=== PATIENT | female | born 2000 | race Asian ===

== ENCOUNTER 2022-07-14 18:21 | Observation (INO) ==
[2022-07-14 18:52] LABS: Basophils # (auto) 0.02 K/uL (0-0.2); Basophils % (auto) 0.2 %; Eosinophils # (auto) 0.13 K/uL (0-0.50); Eosinophils % (auto) 1.1 %; Hematocrit (blood only) 40.3 % (34.1-44.9); Immature Granulocytes # (auto) 0.04 K/uL (0.00-0.02); Immature Granulocytes % (auto) 0.3 %; Lymphocytes # (auto) 2.02 K/uL (1.2-3.4); Lymphocytes % (auto) 17.1 %; Mean Corpuscular Hemoglobin 27.5 pg (25.0-34.0); Mean Corpuscular Hgb Conc 32.3 g/dL (32.0-36.0); Mean Corpuscular Volume 85.2 fL (80.0-100.0); Mean Platelet Volume 10.7 fL (9.4-12.3); Monocytes # (auto) 0.44 K/uL (0.24-0.82); Monocytes % (auto) 3.7 %; Neutrophils # (auto) 9.16 K/uL (1.4-6.5); Neutrophils % (auto) 77.6 %; Platelet Count 261 K/uL (130-400); RDW Coefficient of Variation 12.9 % (11.5-14.5); RDW Standard Deviation 40.1 fL (36.4-46.3); Red Blood Count 4.73 M/uL (3.93-5.22); White Blood Count 11.81 K/ul (4.8-10.8)
[2022-07-14 19:17] LABS: Alanine Aminotransferase 16 U/L (7-52); Albumin Globulin Ratio 1.5 (0.9-2); Albumin Level 3.9 gm/dl (3.4-5.0); Alkaline Phosphatase 51 U/L (34-104); Anion Gap 6 (3-11); Aspartate Aminotransferase 22 U/L (13-39); Bilirubin,Total 0.7 mg/dl (0.2-1.0); Blood Urea Nitrogen 15 mg/dl (6-23); Calcium 8.6 mg/dl (8.5-10.1); Carbon Dioxide 26 mmol/L (21-32); Chloride 105 mmol/L (98-107); Est GFR (African American) 124.9 ml/min; Est GFR (Non-African American) 107.8 ml/min; Globulin 2.6 gm/dl (2.5-4.0); Glucose 150 mg/dl (70-99(Fasting)); Potassium 3.6 mmol/L (3.5-5.1); Sodium 137 mmol/L (136-145); Total Protein 6.5 gm/dl (6.0-8.3)
[2022-07-14] MEDS ORDERED: SODIUM CHLORIDE 0.9% 1000ML 1,000 ML IV ONE (19:42)
--- NOTE | 2022-07-14 19:47 | Emergency Department Note ---
Impression & Plan Vasculitis, Leukocytosis, Acute hyperglycemia ED Provider Note NAME: JANKI AMRY AGE: 21 SEX: F : 2000 ARRIVES VIA: Walk-In INFORMANT: Patient ED PROVIDER(S): Joe Cervantes DO CHIEF COMPLAINT: leg pain and rash HPI: Patient is a 21-year-old female who presents the ER to the for a rash on her lower extremities. Recently came back from [place] around the . Rash started this past Monday on the lower extremities. She notes the calves are painful. She notes that she can barely walk secondary to the cramping and the pain in her legs. Rash does come up into the bilateral arms. She admits to cramping pain in the bilateral thighs and calves. Pain is an 8 out of 10. Worse with movement improves with rest. It is sharp and stabbing. Denies any tingling or numbness. No chest pain or shortness of breath. No other exacerbating or remitting factors. ROS: See above HPI for pertinent positives & negatives. A total of 10 systems reviewed and were otherwise negative. PAST MEDICAL HISTORY:See Below PAST SURGICAL HISTORY:See Below FAMILY HISTORY:See Below SOCIAL HISTORY:See Below HOME MEDICATIONS:See Below ALLERGIES:See Below VITALS:See Below PHYSICAL EXAMINATION: GENERAL: Sitting up in bed, alert, well appearing, well nourished, no distress, non-toxic EYE EXAM: normal conjunctiva. OROPHARYNX: no exudate, no erythema, lips, buccal mucosa, and tongue normal and mucous membranes are moist NECK: supple, no nuchal rigidity, no adenopathy, non-tender LUNGS: Clear to auscultation. Normal chest wall mechanics HEART: no murmurs, S1 normal and S2 normal ABDOMEN: abdomen soft, non-tender, normo-active bowel sounds, no masses, no re bound or guarding. BACK: Back is symmetrical on inspection and there is no deformity, no midline te nderness, no CVA tenderness. SKIN: In the lower extremities and bilateral forearms and gluteal regions. Tender to palpation. UPPER EXTREMITIES: upper extremities are grossly normal. LOWER EXTREMITIES: No pitting edema. NEURO EXAM: Normal sensorium, cranial nerves II-XII grossly intact, normal sp eech, no gross weakness of arms, no gross weakness of legs. MEDICAL DECISION MAKING: Patient is a 21-year-old female who presents ER for rash on lower extremities. She notes it is painful and has been present since this past Monday. Recent trip to [place] and she has returned. She denies any fevers. IVs were established blood work was obtained. Labs show mild leukocytosis 11.8 thousand. No significant anemia. Platelets were appropriate. INR unremarkable. BMP with LFTs bilirubin was unremarkable. UA was clean. COVID was negative. On exam this does appear to be consistent with a vasculitis question IgA but it does include the upper extremities. She was given a dose of steroids. Discussed with Dr. Chay Garcia for further evaluation. Triage Nursing notes reviewed. Limited review of prior medical records performed Vital Signs: reviewed and remarkable for no significant abnormalities Differential diagnosis: Contact dermatitis, viral exanthem, urticaria, allergic reaction, Max- Enoch syndrome, toxic epidermal necrolysis, erythema multiforme, cellulitis, scabies, HSV, varicella, zoster, eczema, staph scalded skin syndrome, fungal infection, as well as other pathologies. ER treatment provided: See below Diagnostics interpreted by me: ECG: [none] Cardiac Monitoring: An order was placed for continuous cardiac monitoring. The monitor shows a rate of 101 with sinus rhythm. Laboratory studies: As stated above and show below. Imaging studies: See below Consultation(s): Discussed with Chay Garcia for further evaluation Procedures: none Critical Care: None Past Med/Surg History Medical History (Updated 07/14/22 @ 22:26 by Joe Cervantes DO) No pertinent family history No pertinent past medical history Surgical History (Updated 07/10/22 @ 21:21 by Bryan Polanco) No pertinent past surgical history Social History Smoking Status: Never smoker Feels Safe at Home: Yes Allergies Allergies Allergy/AdvReac Type Severity Reaction Status Date / Time No Known Allergies Allergy Verified 07/14/22 20:35 Home Meds Home Medications Medication Instructions Recorded Confirmed ibuprofen 200 mg tablet (Advil) 200 mg PO DIRECTED PRN Pain 07/14/22 07/14/22 Results & Data (ED) Vital Signs Vital Signs - 24 hr 07/14/22 18:27 Temperature 37.2 C Temperature Source Oral Pulse Rate 108 H Respiratory Rate 20 Respiratory Effort / Characteristics Non-Labored Spontaneous Respiratory Depth Normal Respiratory Pattern Regular Blood Pressure 128/77 Blood Pressure Mean 94 Pulse Oximetry 98 Oxygen Delivery Method Room Air Sepsis Recent Fever Within 48 Hours No Sepsis New/Unexplained Change in Mental Status No Sepsis Action Taken by Nursing No Action Required Laboratory Data Result diagrams: 07/14/22 18:41 07/14/22 18:41 Lab Results 07/14/22 07/14/22 07/14/22 Range/Units 18:41 18:41 20:00 WBC 11.81 H (4.8-10.8) K/ul RBC 4.73 (3.93-5.22) M/uL Hgb 13.0 (12.0-16.0) g/dl Hct 40.3 (34.1-44.9) % MCV 85.2 (80.0-100.0) fL MCH 27.5 (25.0-34.0) pg MCHC 32.3 (32.0-36.0) g/dL RDW Std Deviation 40.1 (36.4-46.3) fL RDW Coeff of [place] 12.9 (11.5-14.5) % Plt Count 261 (130-400) K/uL MPV 10.7 (9.4-12.3) fL Immature Gran % (Auto) 0.3 % Neut % (Auto) 77.6 % Lymph % (Auto) 17.1 % [place] % (Auto) 3.7 % Eos % (Auto) 1.1 % Baso % (Auto) 0.2 % Neut # (Auto) 9.16 H (1.4-6.5) K/uL Lymph # (Auto) 2.02 (1.2-3.4) K/uL [place]gs # (Auto) 0.44 (0.24-0.82) K/uL Eos # (Auto) 0.13 (0-0.50) K/uL Baso # (Auto) 0.02 (0-0.2) K/uL Immature Gran # (Auto) 0.04 H (0.00-0.02) K/uL PT (9.0-12.0) Seconds INR (0.9-1.1) APTT (21.0-31.0) Seconds PTT Ratio Sodium 137 (136-145) mmol/L Potassium 3.6 (3.5-5.1) mmol/L Chloride 105 (98-107) mmol/L Carbon Dioxide 26 (21-32) mmol/L Anion Gap 6 (3-11) BUN 15 (6-23) mg/dl Creatinine 0.79 (0.6-1.2) mg/dl Est Cr Clr Drug Dosing Not Reportable Est GFR ( Amer) 124.9 ml/min Est GFR (Non-Af Amer) 107.8 ml/min BUN/Creatinine Ratio 19.0 (10-20) Glucose 150 H (70-99(Fasting)) mg/dl Lactate 1.3 (0.4-2.0) mmol/L Calcium 8.6 (8.5-10.1) mg/dl Total Bilirubin 0.7 (0.2-1.0) mg/dl AST 22 (13-39) U/L ALT 16 (7-52) U/L Alkaline Phosphatase 51 (34-104) U/L Total Protein 6.5 (6.0-8.3) gm/dl Albumin 3.9 (3.4-5.0) gm/dl Globulin 2.6 (2.5-4.0) gm/dl Albumin/Globulin Ratio 1.5 (0.9-2) Urine Color Urine Appearance (Clear) Urine pH (4.5-7.5) Ur Specific [place] (1.000-1.030) Urine Protein (Negative) Urine Glucose (UA) (Negative) Urine Ketones (Negative) Urine Blood (Negative) Urine Nitrite (Negative) Urine Bilirubin (Negative) Urine Urobilinogen (Negative) Ur Leukocyte Esterase (Negative) Urine WBC (Auto) (0-5) /hpf Urine RBC (Auto) (0-4) /hpf U Hyaline Cast (Auto) (0-5) /lpf U Epithel Cells (Auto) (0-5) /lpf Urine Bacteria (Auto) (Negative) SARS-CoV-2, RNA, NAAT (NEGATIVE) 07/14/22 07/14/22 07/14/22 Range/Units 20:00 20:00 21:54 WBC (4.8-10.8) K/ul RBC (3.93-5.22) M/uL Hgb (12.0-16.0) g/dl Hct (34.1-44.9) % MCV (80.0-100.0) fL MCH (25.0-34.0) pg MCHC (32.0-36.0) g/dL RDW Std Deviation (36.4-46.3) fL RDW Coeff of [place] (11.5-14.5) % Plt Count (130-400) K/uL MPV (9.4-12.3) fL Immature Gran % (Auto) % Neut % (Auto) % Lymph % (Auto) % [place] % (Auto) % Eos % (Auto) % Baso % (Auto) % Neut # (Auto) (1.4-6.5) K/uL Lymph # (Auto) (1.2-3.4) K/uL [place] # (Auto) (0.24-0.82) K/uL Eos # (Auto) (0-0.50) K/uL Baso # (Auto) (0-0.2) K/uL Immature Gran # (Auto) (0.00-0.02) K/uL PT 10.3 (9.0-12.0) Seconds INR 1.0 (0.9-1.1) APTT 24.8 (21.0-31.0) Seconds PTT Ratio 0.9 Sodium (136-145) mmol/L Potassium (3.5-5.1) mmol/L Chloride (98-107) mmol/L Carbon Dioxide (21-32) mmol/L Anion Gap (3-11) BUN (6-23) mg/dl Creatinine (0.6-1.2) mg/dl Est Cr Clr Drug Dosing Est GFR ( Amer) ml/min Est GFR (Non-Af Amer) ml/min BUN/Creatinine Ratio (10-20) Glucose (70-99(Fasting)) mg/dl Lactate (0.4-2.0) mmol/L Calcium (8.5-10.1) mg/dl Total Bilirubin (0.2-1.0) mg/dl AST (13-39) U/L ALT (7-52) U/L Alkaline Phosphatase (34-104) U/L Total Protein (6.0-8.3) gm/dl Albumin (3.4-5.0) gm/dl Globulin (2.5-4.0) gm/dl Albumin/Globulin Ratio (0.9-2) Urine Color Yellow Urine Appearance Clear (Clear) Urine pH 6.0 (4.5-7.5) Ur Specific [place] 1.020 (1.000-1.030) Urine Protein Negative (Negative) Urine Glucose (UA) Negative (Negative) Urine Ketones Negative (Negative) Urine Blood Negative (Negative) Urine Nitrite Negative (Negative) Urine Bilirubin Negative (Negative) Urine Urobilinogen Negative (Negative) Ur Leukocyte Esterase Trace H (Negative) Urine WBC (Auto) 1-5 (0-5) /hpf Urine RBC (Auto) 0-4 (0-4) /hpf U Hyaline Cast (Auto) 1-5 (0-5) /lpf U Epithel Cells (Auto) 10-20 H (0-5) /lpf Urine Bacteria (Auto) Negative (Negative) SARS-CoV-2, RNA, NAAT NEGATIVE (NEGATIVE) Administered Medications Discontinued Medications Sodium Chloride (Nss 1000ml) 1,000 mls @ 999 mls/hr IV .Q1H1M ONE Stop: 07/14/22 20:42 Last Admin: 07/14/22 19:56 Dose: 999 mls/hr Documented By: RONALDO Methylprednisolone (Methylprednisolone 40 Mg/Ml Vial) 40 mg IV NOW STA Stop: 07/14/22 19:45 Last Admin: 07/14/22 19:56 Dose: 40 mg Documented By: RONALDO Discharge Plan Visit Data Chief Complaint: Leg Injury/Pain Stated Complaint: PAIN IN LEGS ED Provider: Joe Cervantes Discharge Problem: Vasculitis, Leukocytosis, Acute hyperglycemia Forms Stand Alone Forms: [facility] [place] [employer] Prescriptions Prescriptions: No Action ibuprofen [Advil] 200 mg Tablet 200 mg PO DIRECTED PRN (Reason: Pain) Referrals Referrals: [facility] [Primary Care Provider] -
[2022-07-14 20:54] LABS: Partial Thromboplastin Ratio 0.9; Partial Thromboplastin Time 24.8 Seconds (21.0-31.0); Prothrombin Time 10.3 Seconds (9.0-12.0)
[2022-07-14 21:25] LABS: Appearance Urine Clear (Clear); Bacteria Urine Automated Negative (Negative); Bilirubin Urine Negative (Negative); Blood Urine Negative (Negative); Color Urine Yellow; Glucose Urine UA Negative (Negative); Ketones Urine Negative (Negative); Leukocyte Esterase Urine Trace (Negative); Nitrite Urine Negative (Negative); Protein Urine Negative (Negative); RBC Urine Automated 0-4 /hpf (0-4); Urobilinogen Urine Negative (Negative)
--- NOTE | 2022-07-14 21:46 | History & Physical Report ---
Date of Service July 14, 2022 Assessment & Plan (1) Petechial rash: Plan: 21-year-old woman with no significant past medical history who presents with 2 to 3 days of diffuse lower extremity petechial rash sparing the trunk and face, now extending to upper extremities. Admitted for worsening bilateral calf pain and swelling, and additional diagnostic work-up. Petechial rash -Etiology is unclear. Patient had a similarly unexplained diffuse total body rash (did not spare the trunk or face) over 10 days prior, which apparently resolved on an unnamed antibiotic. She was initially diagnosed with allergic urticaria. -Patient afebrile on both occasions. -Differential diagnosis includes allergic vasculitis, HUS, DIC, tickborne illness, SJS/TEN, ITP, HSP. Also considering parasitic etiology, given patient's travel history. Strongly suspect ITP versus vasculitis. -Admit to [facility] -Supportive management: mIVF, Tylenol, Zofran as needed -Diagnostic labs: CK, tickborne panel (Ehrlichia, Anaplasma, Babesia, Lyme, Rickettsia, Q fever), D-dimer -Bilateral LE venous ultrasound -Peripheral smear of platelets -ID, Derm consult -Isolation precautions -Trend platelets on morning CBC Gallstones: Seen on gallbladder ultrasound. No evidence of acute cholecystitis or gallbladder wall thickening. Patient's presenting symptoms have since resolved. Unclear if related to current presentation. Leukocytosis: WBC-11.1 unclear if true leukocytosis or if slowly downtrending from WBC 15 recorded 5 days earlier. Trend on morning CBC. Code: Full code Dispo: Med-Surg FEN/GI: regular diet, maintenance IV NS DVT Prophylaxis: none PT/OT: N/A Consults: Infectious disease, Dermatology Case management: (2) Leukocytosis: (3) Gallstones: History of Present Illness Primary Care Provider: [facility] Genoveva is a 21 year old woman with no significant past medical history who presents to the ER for painless, nonpruritic rash on her bilateral legs and thighs x2 to 3 days. Rash began abruptly in her lower legs and gradually spread to her thighs and upper arms. Rash has spared the trunk and face. She also reported bilateral lower extremity swelling and calf pain. Calf pain progressively worsened to the point that she was unable to walk without limping, prompting her to come to the emergency room. Pain is localized exclusively to the calves. She denies numbness or tingling. Calf pain is aggravated by movement, specifically knee extension, and relieved with rest. She is recently returned from a trip to [facility], from which she returned on July 01. During her stay, she had an acute episode of a diffuse, painless, purpuric macular rash that presented at once. She went to the hospital during her trip, where she was diagnosed with allergic urticaria (she provided confirmatory documentation) and sent home on Benadryl. An allergy panel was positive for insect bite inflammation/dermatitis, and she speculates she was bitten by a bug. However, her symptoms did not resolve with Benadryl and she returned to the hospital, where she was diagnosed with a "blood infection." She was prescribed antibiotics but she cannot recall the name. Her symptoms were resolved by the time she returned to the [facility]. She had no skin symptoms again until 3 days ago. Prior to these 2 episodes, she had never had any similar incidence of skin rash. She denies headache, shortness of breath, change in vision, fever, chills, weight loss, nausea, vomiting, abdominal pain, or dysuria. Her roommate, who is in the room and present, went with/lived in close quarters with her on the [place] trip and did not experience any of the same symptoms. In total, about 7 or 8 friends went on a trip to [facility]. The patient is the only person who suffered a rash. She has no chronic medical conditions and takes no medications. She was seen in the emergency room 07/10/2022 for abdominal pain and nausea. She received a full diagnostic work-up including imaging which revealed leukocytosis to 15 and gallstones. There was no evidence of acute cholecystitis or gallbladder wall thickening. She was discharged home on pain medicines and her symptoms subsequently resolved. She has no pain at present. In the ED today, she received IV methylprednisolone x1, and 1 L IV normal saline bolus. Labs showed WBC of 11.8 (down from 15 on 07/10). UA was positive for trace LE. Allergies Allergy/AdvReac Type Severity Reaction Status Date / Time No Known Allergies Allergy Verified 07/14/22 20:35 Home Medications Medication Instructions Recorded Confirmed Type ibuprofen 200 mg tablet (Advil) 200 mg PO DIRECTED PRN Pain 07/14/22 07/14/22 History prednisone 10 mg tablet 10 mg PO DAILY vasculitis #50 tabs 07/15/22 Rx Past Med/Surg History Medical History (Updated 07/15/22 @ 00:35 by Meredith Castro MD) No pertinent family history No pertinent past medical history Surgical History (Updated 07/10/22 @ 21:21 by Bryan Polanco) No pertinent past surgical history Social History Smoking Status: Never smoker Hx Alcohol Use: No Hx Substance Use: No Preferred Language: Citizen Of [place] Communication Ability: Effective 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 HEENT: Normocephalic, atraumatic. EOM intact. Good conjugate gaze. Nares patent. Moist mucosal membranes. Neck: Supple. No lymphadenopathy. Normal ROM. CV: Regular rate and rhythm. Normal S1 and S2. No murmurs gallops or rubs. Respiratory: Normal respiratory effort. Lungs clear to auscultation bilaterally. No crackles, rhonchi, or wheezes. Abdomen: Soft, nondistended abdomen. No bruits heard on auscultation. No tenderness to deep palpation. No guarding or rebound. Extremities: Capillary refill <2 sec. 2+ dp equal bilaterally. No pedal edema. Neuro: Alert and oriented x3. Skin: Diffuse nonblanching, flat petechial rash of the foot and leg bilaterally, without surrounding erythema. Lower leg rash most prominent on the lateral aspect bilaterally. In the bilateral thighs, petechiae are more confluent, and appear more as purplish red patches. These rashes are more prominent on the posterior aspect of the thighs bilaterally. There are no visible rashes on the trunk anteriorly or posteriorly, the neck, and face. On the extensor surfaces of her forearms bilaterally, there are larger (1 cm diameter) bruise-like erythematous macules just distal to the elbows. Results & Data Results & Data ([facility]) Vital Signs (Past 12 Hours) Vital Signs Temp Pulse Resp BP Pulse Ox O2 Del Method 07/14/22 18:27 37.2 C 108 H 20 128/77 98 Room Air Supervising Physician Co-Signing Physician Notes Attending addendum: I have physically seen this patient, have supervised the medical residents activities, and agree with the H&P unless as otherwise noted. Assessment and Plan: Petechial rash- History of unknown bug bite while in [place] that caused diffuse moderately severe erythematous rash which had resolved Questionable diagnosis earlier of allergic urticaria Needs further work-up With differential as noted Send peripheral smear, tickborne assessment, D-dimer, segmentation rate, IVY Consult dermatology Follow serial CBC with differential Symptomatic treatment with Tylenol and Benadryl Remaining orders and notations as noted Resident Activity Tracking Resident Involvement: Resident Care Provided Care Provided: Adult Hospital Medicine
[2022-07-15] MEDS ORDERED: ACETAMINOPHEN 325 MG TAB PO PRN (00:20)
[2022-07-15] MEDS ORDERED: ONDANSETRON INJ 2 MG/ML 2 ML VIAL IV PRN (00:20)
[2022-07-15] MEDS: SODIUM CHLORIDE 0.9% 1000ML 1,000 ML IV SCH ×2 (00:37→09:26)
[2022-07-15 00:46] LABS: D Dimer 5410 ug/L FEU (0-500)
[2022-07-15 00:53] LABS: Lyme Ab IgG w/WB Rflx Negative (Negative); Lyme Ab IgM w/WB Rflx Negative (Negative)
--- NOTE | 2022-07-15 07:24 | Ultrasound Report ---
ULTRASOUND BILATERAL LOWER EXTREMITY VENOUS CLINICAL HISTORY: Leg pain and swelling. Rash. COMPARISON STUDY: No priors. TECHNIQUE: Real-time, grayscale, and color Doppler sonography of the deep veins of the right and left lower extremity was performed from the inguinal crease to the calf. Compression and augmentation wer e utilized. FINDINGS: There is no sonographic evidence of deep venous thrombosis identified in the right or left lower extremity. The common femoral, superficial femoral, and popliteal veins are patent and normally compressible bilaterally. The greater saphenous vein and the profunda femoris vein at the junction w ith the common femoral vein are clear in both legs. The visualized calf veins are patent bilaterally. IMPRESSION: There is no sonographic evidence of deep venous thrombosis identified in the right or lef t lower extremity. ACT 112: Negative or not required by law. Electronically signed by: Kishore Bahena M.D. 07/15/2022 7:22 AM
--- NOTE | 2022-07-15 09:51 | Medical Student Progress Note ---
Date of Service July 15, 2022 Assessment & Plan Plan Pt. is a 21 y/o F w/o significant PMH who presented to the ED with bilateral lower extremity myalgia and purpuric rash x3 days. Bilateral LE rash resembling IgA vasculitis - 3 days bilateral LE rash + calf myalgias - Myagias improved after methylprednisolone 50mg - Prior hospitalization for bacterial infection and 1x episode abdominal pain - Bilateral LE rash as per physical exam - Minor leukocytosis (11.81), afebrile, no systemic sx - Punch biopsy performed - Discharge with oral prednisone taper from 50mg to 5mg and f/u with rheumatology Elevated D-Dimer - Level recorded in ED- 5410 - Venous Doppler study showed no evidence of R or L lower extremity DVT - Likely result of vasculitis - PE risk calculator with < 2% of pulmonary embolism - Will monitor for chest pain, dyspnea, SOB, cough History of cholelithiasis - Was seen in ED last week for gallstones - May correlate with prior abdominal pain - Continue monitoring per ED discharge instructions Code: Full Diet: Regular DVT ppx: SCDs Dispo: Med/Surg Admission and Anticipated Discharge Date Admission Date: July 14, 2022 Subjective She is in good spirits today and denies any symptoms. Reports that the steroids she received resolved her calf pain, and the rash is not to be painful or itchy. She denies chest pain, shortness of breath, fever, chills, or loss of appetite. Review of Systems Constitutional: as per Subjective / HPI Physical Exam Skin: Bilateral lower extremity purpuric erythematous nonblanching nontender nonpruritic nonraised rash, soles of feet spared. Dorsal portion of bilateral forearms nonblanching nontender mildly erythematous nonraised and nonpruritic patches. Results & Data ([facility]) Vital Signs (Past 12 Hours) Vital Signs Temp Pulse Resp BP Pulse Ox O2 Del Method 07/15/22 07:13 36.8 C 68 12 104/65 95 Room Air 07/15/22 00:49 37.1 C 16 119/74 97 Room Air
--- NOTE | 2022-07-15 12:33 | Dermatology Consultation ---
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 Henoch-Schonlein purpura is also a consideration given her recent abdominal pain symptoms and joint complaints. Her lab workup is unremarkable for any signs of systemic involvement, and her ROS is unremarkable at this point. Biopsy is unlikely to jacquard loom card changer in this case, so defer at this time. Recommend the followin) Prednisone taper: Prednisone 40mg once daily x 5 days, then 30mg once daily x 5 days, then 20mg once daily x 5 days, then 10mg once daily x 5 days. 2) Follow-up with Derm in 2-3 weeks to check status as her prednisone taper is completing. I will plan to recheck renal function at that time. 3) Thanks for consult. Call with any questions. Present on Admission?: Yes History of Present Illness Reason for Consultation: Rash Requesting Physician: Meredith Castro MD Attending Physician: Rodo Anderson MD History of Present Illness Patient is a 21-year-old female admitted to [facility] on 07/14/2022 for rash involving the lower trunk and lower extremities. She reports that this started abruptly on the lower legs 2-3 days prior to her admission. She also reports some associated pain and swelling involving the calves and ankles. She denies any significant itching associated with the rash. She denies any history of similar eruption in the past. She has recent history of traveling to [facility] to visit family in May and June. She reports that she did develop a different rash while traveling throughout [facility]. It was presumed to be an allergic phenomenon possibly related to a bug bites. She was seen by healthcare while in [facility] and treated with a 5-day course of unknown named antibiotic. She reports that this initial rash resolved. She returned to [place] 7-10 days ago. She was seen in the emergency room on 07/10/2022 for GI symptoms of nausea and abdominal pain that were felt to be related to gallstones. She denies having any fever or other systemic symptoms in the week preceding her current rash. She denies taking any medications at home. While in the ER, she was given IV methylprednisolone 40 mg. She notes that her joint swelling and pain have improved overnight and some areas of rash also seem to be improved. She is otherwise feeling in normal state of health. 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 Allergies Allergy/AdvReac Type Severity Reaction Status Date / Time No Known Allergies Allergy Verified 07/14/22 20:35 Home Medications Medication Instructions Recorded Confirmed Type ibuprofen 200 mg tablet (Advil) 200 mg PO DIRECTED PRN Pain 07/14/22 07/14/22 History Patient History Medical History (Updated 07/15/22 @ 00:35 by Meredith Castro MD) No pertinent family history No pertinent past medical history Surgical History (Updated 07/10/22 @ 21:21 by Bryan Polanco) No pertinent past surgical history Social History Smoking Status: Never smoker Hx Alcohol Use: No Hx Substance Use: No Preferred Language: Burkinan Communication Ability: Effective 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: No Beliefs That Will Affect Care: None Current Living Situation: Other Feels Safe at Home: Yes Safety Concerns: Feels Safe At This Time Assistive Devices: None Review of Systems Constitutional: no fever, no chills, no sweats and no malaise Eyes: no eye pain Ear, Nose, Mouth, Throat: no mouth lesions and no sore throat Respiratory: no cough and no dyspnea Gastrointestinal: as per Subjective / HPI Genitourinary: no dysuria and no hematuria Musculoskeletal: as per Subjective / HPI Integumentary: as per Subjective / HPI Neurologic: no tingling, no numbness and no headache(s) Hematologic / Lymphatic: no easy bleeding and no easy bruising Physical Exam Physical Exam: General Appearance:Well developed, well-nourished and in no acute distress Psych:Alert, Oriented and Appropriate Skin Type:2 Face: no abnormalities noted. Eyelids/Ocular Mucosa: no abnormalities noted. Lips/Teeth/Gums: no abnormalities noted. Neck: no abnormalities noted. Right Lower Extremity:scattered slightly palpable baukpeeixojn-wx-ohnlkzkf papules with background fading macules/dyschromia on the dorsal foot, lara, calf, thigh Left Lower Extremity:scattered slightly palpable fjdtoxkzptjn-bw-tupzfhqp papules with background fading macules/dyschromia on the dorsal foot, lara, calf, thigh Back:no abnormalities noted. Buttocks/Groin/Genitalia: scattered slightly palpable fzkaumjawsxr-jn-whssbbhi papules with background fading macules/dyschromia on the buttocks Right Upper Extremity:scattered slightly palpable tdsyyyjksgza-jf-vovrmhib papules/patches on the forearm Left Upper Extremity:scattered slightly palpable lgvrezbqokxg-rb-rddpmzpw papules/patches on the forearm Chest/Breast/Axillae:no abnormalities noted. Abdomen:no abnormalities noted. Nails: no abnormalities noted. Other exam notes: Palms/soles clear. Results & Data ([facility]) Vital Signs (Past 12 Hours) Vital Signs Temp Pulse Resp BP Pulse Ox O2 Del Method 07/15/22 07:13 36.8 C 68 12 104/65 95 Room Air 07/15/22 00:49 37.1 C 16 119/74 97 Room Air Laboratory Results Abnormal lab results 07/14/22 07/14/22 07/14/22 Range/Units 18:41 18:41 20:00 WBC 11.81 H (4.8-10.8) K/ul Neut # (Auto) 9.16 H (1.4-6.5) K/uL Immature Gran # (Auto) 0.04 H (0.00-0.02) K/uL D-Dimer (0-500) ug/L FEU Glucose 150 H (70-99(Fasting)) mg/dl C-Reactive Protein (0-0.5) mg/dl Ur Leukocyte Esterase Trace H (Negative) U Epithel Cells (Auto) 10-20 H (0-5) /lpf 07/14/22 07/15/22 Range/Units 23:54 08:59 WBC (4.8-10.8) K/ul Neut # (Auto) (1.4-6.5) K/uL Immature Gran # (Auto) (0.00-0.02) K/uL D-Dimer 5410 H* (0-500) ug/L FEU Glucose (70-99(Fasting)) mg/dl C-Reactive Protein 1.74 H (0-0.5) mg/dl Ur Leukocyte Esterase (Negative) U Epithel Cells (Auto) (0-5) /lpf Abnormal Labs 07/14/22 07/14/22 07/14/22 18:41 18:41 20:00 WBC 11.81 H Neut # (Auto) 9.16 H Immature Gran # (Auto) 0.04 H D-Dimer Glucose 150 H C-Reactive Protein Ur Leukocyte Esterase Trace H U Epithel Cells (Auto) 10-20 H 07/14/22 07/15/22 23:54 08:59 WBC Neut # (Auto) Immature Gran # (Auto) D-Dimer 5410 H* Glucose C-Reactive Protein 1.74 H Ur Leukocyte Esterase U Epithel Cells (Auto) Diagnostic Findings Imaging/Microbiology reviewed in [facility]. Medications Administered MAR reviewed in [facility]. PG Care Time/CCT Total # of Minutes Spent Total Time Spent with Patient: Total time spent is greater than 50% in coordination of care (as documented) at patient's floor/unit and/or counseling patient: Coding Level of Care Code 48308 Office/OBS Consult Lvl 2 Diagnoses Vasculitis I77.6
--- NOTE | 2022-07-15 16:56 | Discharge Summary ---
Date of Service July 15, 2022 Admission HPI Per Admitting Provider Genoveva is a 21 year old woman with no significant past medical history who presents to the ER for painless, nonpruritic rash on her bilateral legs and thighs x2 to 3 days. Rash began abruptly in her lower legs and gradually spread to her thighs and upper arms. Rash has spared the trunk and face. She also reported bilateral lower extremity swelling and calf pain. Calf pain progressively worsened to the point that she was unable to walk without limping, prompting her to come to the emergency room. Pain is localized exclusively to the calves. She denies numbness or tingling. Calf pain is aggravated by movement, specifically knee extension, and relieved with rest. She is recently returned from a trip to [facility], from which she returned on July 01. During her stay, she had an acute episode of a diffuse, painless, purpuric macular rash that presented at once. She went to the hospital during her trip, where she was diagnosed with allergic urticaria (she provided confirmatory documentation) and sent home on Benadryl. An allergy panel was positive for insect bite inflammation/dermatitis, and she speculates she was bitten by a bug. However, her symptoms did not resolve with Benadryl and she returned to the hospital, where she was diagnosed with a "blood infection." She was prescribed antibiotics but she cannot recall the name. Her symptoms were resolved by the time she returned to the [place]. She had no skin symptoms again until 3 days ago. Prior to these 2 episodes, she had never had any similar incidence of skin rash. She denies headache, shortness of breath, change in vision, fever, chills, weight loss, nausea, vomiting, abdominal pain, or dysuria. Her roommate, who is in the room and present, went with/lived in close quarters with her on the [place] trip and did not experience any of the same symptoms. In total, about 7 or 8 friends went on a trip to [facility]. The patient is the only person who suffered a rash. She has no chronic medical conditions and takes no medications. She was seen in the emergency room 07/10/2022 for abdominal pain and nausea. She received a full diagnostic work-up including imaging which revealed leukocytosis to 15 and gallstones. There was no evidence of acute cholecystitis or gallbladder wall thickening. She was discharged home on pain medicines and her symptoms subsequently resolved. She has no pain at present. In the ED today, she received IV methylprednisolone x1, and 1 L IV normal saline bolus. Labs showed WBC of 11.8 (down from 15 on 07/10). UA was positive for trace LE. Principal Diagnosis Small Vessel Vasculitis Discharge Exam General: Well-appearing, alert,in no acute distress. HEENT: Normocephalic, atraumatic. Moist mucosal membranes. Neck: Supple. No lymphadenopathy. CV: Regular rate and rhythm. Normal S1 and S2. No murmurs gallops or rubs. Respiratory: Normal respiratory effort. Lungs clear to auscultation bilaterally. No crackles, rhonchi, or wheezes. Abdomen: Soft, nondistended abdomen. No tenderness to deep palpation. No guarding or rebound. Extremities: Capillary refill <2 sec. 2+ dp equal bilaterally. No pedal edema. Neuro: Alert and oriented x3. Skin:Diffuse nonblanching, flat petechial rash of the foot and leg bilaterally, without surrounding erythema. Lower leg rash most prominent on the lateral aspect bilaterally. In the bilateral thighs, petechiae are more confluent, and appear more as purplish red patches. These rashes are more prominent on the posterior aspect of the thighs bilaterally. There are no visible rashes on the trunk anteriorly or posteriorly, the neck, and face. On the extensor surfaces of her forearms bilaterally, there are larger (1 cm diameter) bruise-like erythematous macules just distal to the elbows. Discharge Data Allergies Allergy/AdvReac Type Severity Reaction Status Date / Time No Known Allergies Allergy Verified 07/14/22 20:35 Consultations 07/14/22 23:31 Consult Dermatology Routine Ordered Studies Laboratory Results WBC 11.81 K/ul (4.8-10.8) H 07/14/22 18:41 RBC 4.73 M/uL (3.93-5.22) 07/14/22 18:41 Hgb 13.0 g/dl (12.0-16.0) 07/14/22 18:41 Hct 40.3 % (34.1-44.9) 07/14/22 18:41 MCV 85.2 fL (80.0-100.0) 07/14/22 18:41 MCH 27.5 pg (25.0-34.0) 07/14/22 18:41 MCHC 32.3 g/dL (32.0-36.0) 07/14/22 18:41 RDW Std Deviation 40.1 fL (36.4-46.3) 07/14/22 18:41 RDW Coeff of [place] 12.9 % (11.5-14.5) 07/14/22 18:41 Plt Count 261 K/uL (130-400) 07/14/22 18:41 MPV 10.7 fL (9.4-12.3) 07/14/22 18:41 Immature Gran % (Auto) 0.3 % 07/14/22 18:41 Neut % (Auto) 77.6 % 07/14/22 18:41 Lymph % (Auto) 17.1 % 07/14/22 18:41 [place]y % (Auto) 3.7 % 07/14/22 18:41 Eos % (Auto) 1.1 % 07/14/22 18:41 Baso % (Auto) 0.2 % 07/14/22 18:41 Neut # (Auto) 9.16 K/uL (1.4-6.5) H 07/14/22 18:41 Lymph # (Auto) 2.02 K/uL (1.2-3.4) 07/14/22 18:41 [place]ibley # (Auto) 0.44 K/uL (0.24-0.82) 07/14/22 18:41 Eos # (Auto) 0.13 K/uL (0-0.50) 07/14/22 18:41 Baso # (Auto) 0.02 K/uL (0-0.2) 07/14/22 18:41 Immature Gran # (Auto) 0.04 K/uL (0.00-0.02) H 07/14/22 18:41 Peripher Smr Path Cons 07/14/22 23:54 ESR 17 mm/hr (0-20) 07/14/22 23:54 PT 10.3 Seconds (9.0-12.0) 07/14/22 20:00 INR 1.0 (0.9-1.1) 07/14/22 20:00 APTT 24.8 Seconds (21.0-31.0) 07/14/22 20:00 PTT Ratio 0.9 07/14/22 20:00 D-Dimer 5410 ug/L FEU (0-500) H* 07/14/22 23:54 Sodium 137 mmol/L (136-145) 07/14/22 18:41 Potassium 3.6 mmol/L (3.5-5.1) 07/14/22 18:41 Chloride 105 mmol/L (98-107) 07/14/22 18:41 Carbon Dioxide 26 mmol/L (21-32) 07/14/22 18:41 Anion Gap 6 (3-11) 07/14/22 18:41 BUN 15 mg/dl (6-23) 07/14/22 18:41 Creatinine 0.79 mg/dl (0.6-1.2) 07/14/22 18:41 Est Cr Clr Drug Dosing Not Reportable 07/14/22 18:41 Est GFR ( Amer) 124.9 ml/min 07/14/22 18:41 Est GFR (Non-Af Amer) 107.8 ml/min 07/14/22 18:41 BUN/Creatinine Ratio 19.0 (10-20) 07/14/22 18:41 Glucose 150 mg/dl (70-99(Fasting)) H 07/14/22 18:41 Lactate 1.3 mmol/L (0.4-2.0) 07/14/22 20:00 Calcium 8.6 mg/dl (8.5-10.1) 07/14/22 18:41 Total Bilirubin 0.7 mg/dl (0.2-1.0) 07/14/22 18:41 AST 22 U/L (13-39) 07/14/22 18:41 ALT 16 U/L (7-52) 07/14/22 18:41 Alkaline Phosphatase 51 U/L (34-104) 07/14/22 18:41 Total Creatine Kinase 152 U/L (26-192) 07/14/22 23:54 C-Reactive Protein 1.74 mg/dl (0-0.5) H 07/15/22 08:59 Total Protein 6.5 gm/dl (6.0-8.3) 07/14/22 18:41 Albumin 3.9 gm/dl (3.4-5.0) 07/14/22 18:41 Globulin 2.6 gm/dl (2.5-4.0) 07/14/22 18:41 Albumin/Globulin Ratio 1.5 (0.9-2) 07/14/22 18:41 Urine Color Yellow 07/14/22 20:00 Urine Appearance Clear (Clear) 07/14/22 20:00 Urine pH 6.0 (4.5-7.5) 07/14/22 20:00 Ur Specific [place] 1.020 (1.000-1.030) 07/14/22 20:00 Urine Protein Negative (Negative) 07/14/22 20:00 Urine Glucose (UA) Negative (Negative) 07/14/22 20:00 Urine Ketones Negative (Negative) 07/14/22 20:00 Urine Blood Negative (Negative) 07/14/22 20:00 Urine Nitrite Negative (Negative) 07/14/22 20:00 Urine Bilirubin Negative (Negative) 07/14/22 20:00 Urine Urobilinogen Negative (Negative) 07/14/22 20:00 Ur Leukocyte Esterase Trace (Negative) H 07/14/22 20:00 Urine WBC (Auto) 1-5 /hpf (0-5) 07/14/22 20:00 Urine RBC (Auto) 0-4 /hpf (0-4) 07/14/22 20:00 U Hyaline Cast (Auto) 1-5 /lpf (0-5) 07/14/22 20:00 U Epithel Cells (Auto) 10-20 /lpf (0-5) H 07/14/22 20:00 Urine Bacteria (Auto) Negative (Negative) 07/14/22 20:00 Anaplasma Smear See Comment 07/14/22 23:54 Babesia Smear See Comment 07/14/22 23:54 Lyme Disease IgG Ab Negative (Negative) 07/14/22 23:54 Lyme Disease IgM Ab Negative (Negative) 07/14/22 23:54 SARS-CoV-2, RNA, NAAT NEGATIVE (NEGATIVE) 07/14/22 21:54 Impressions Venous Doppler Study 07/15/22 01:15 ULTRASOUND BILATERAL LOWER EXTREMITY VENOUS CLINICAL HISTORY: Leg pain and swelling. Rash. COMPARISON STUDY: No priors. TECHNIQUE: Real-time, grayscale, and color Doppler sonography of the deep veins of the right and left lower extremity was performed from the inguinal crease to the calf. Compression and augmentation were utilized. FINDINGS: There is no sonographic evidence of deep venous thrombosis identified in the right or left lower extremity. The common femoral, superficial femoral, and popliteal veins are patent and normally compressible bilaterally. The greater saphenous vein and the profunda femoris vein at the junction with the common femoral vein are clear in both legs. The visualized calf veins are patent bilaterally. IMPRESSION: There is no sonographic evidence of deep venous thrombosis identified in the right or left lower extremity. ACT 112: Negative or not required by law. Electronically signed by: Kishore Bahena M.D. 07/15/2022 7:22 AM Hospital Course (1) Vasculitis: 21 y/o F w/o significant PMH who presented to the ED with bilateral lower extremity myalgia and purpuric rash x3 days. Small Vessel Vasculitis - 3 days bilateral LE purpuric rash + calf myalgias - no signs of infection, labs unremarkable with exception of elevated D dimer and CRP; tickborne labs neg, IVY pending - ddx IgA vasculitis vs cutaneous vassculitis secondary to hypersensitivity; possibly triggered by recent infection, abx, autoimmune - Myagias improved with IV methylprednisolone - Derm consulted, recommends steroid taper and outpatient f/u in 2-3 weeks, will monitor kidney function - prescribed oral prednisone taper: 40mg once daily x 5 days, then 30mg once daily x 5 days, then 20mg once daily x 5 days, then 10mg once daily x 5 days. - f/u pcp 1 week Elevated D-Dimer - Elevated 5410, likely secondary to above - low concern for PE, PE risk calculator with < 2% - Venous Doppler study showed no evidence of R or L lower extremity DVT History of cholelithiasis - diagnosed 1 wk ago in ED - will f/u gen surg as outpatient (2) Gallstones: (3) Leukocytosis: Total Time Total Time Spent Total Time Spent (In Minutes): >30 Discharge Plan Discharge Items Patient Disposition: Home - Self-Care Reason For Visit: BILATERAL LOWER EXTREMITY RASH WITH SWELLING Discharge Diagnosis: Small Vessel Vasculitis Activity: Per Instructions section Non-emergency contact: Primary Care Provider Call non-emergency contact if: you have any medication questions, your symptoms worsen and you have a fever Follow-up/Referrals: [facility] [Primary Care Provider] - Larry Guadalupe MD [Physician] - 07/29/22 2:00 pm (f/u 2-3 weeks for vasculitis ) Kamran Alcala DO [Resident] - (f/u 1 week) Diet: Regular Addtl Attending Provider Instructions: You were admitted to the hospital for a rash on your lower legs and forearms over the past 3 days. After further evaluation in the hospital, we believe your rash is due to a type of vasculitis, which is an inflammation of your blood vessels. The exact etiology of this episode is unknown however could have been triggered by your most recent infection and/or antibiotics. Typically an individual can be predisposed to vasculitis via family chains, autoimmune, or idiopathic. For treatment we have prescribed you a 20-day course of oral steroids as described below. You should follow-up with your primary care provider in 1 week. You should also follow-up with dermatology in 2 to 3 weeks for further evaluation and resolution of symptoms. May use Tylenol or ibuprofen for pain relief if needed. New Meds: -Prednisone 40mg once daily x 5 days, then 30mg once daily x 5 days, then 20mg once daily x 5 days, then 10mg once daily x 5 days Pending Studies at Discharge: No Stand-Alone Forms: My [facility] Medications and DC Order Prescriptions: New prednisone 10 mg tablet 10 mg PO DAILY Qty: 50 0RF Rx Instructions: Prednisone 40mg once daily x 5 days, then 30mg once daily x 5 days, then 20mg once daily x 5 days, then 10mg once daily x 5 days Continued ibuprofen [Advil] 200 mg Tablet 200 mg PO DIRECTED PRN (Reason: Pain) Discharge Orders: Discharge Order (Routine); Ordered 07/15/22 Ordered By: Kamran Ahn/Other Patient Handouts: Understanding Vasculitis Admission Data Admit Date/Time: 07/14/22 22:33 Attending Provider: Rodo Anderson Admit Provider: Meredith Castro Primary Care Provider: [facility] Other Providers: Rebekah Mcduffie ; Larry Guadalupe Other Interventions: Discharge Summary Assessment (RN) Last Done: 07/15/22 14:56 Supervising Physician Co-Signing Physician Notes Patient seen and examined, chart reviewed, case discussed with Kamran Alcala DO and Mabel Allen and I agree with the assessment and plan as above except as otherwise noted Labs and images reviewed 21-year-old female with suspected continued small vessel vasculitis, likely infection/antibiotic induced with differential including HSP. Patient does have a broad panel pending including IVY and reflex. Swelling Dopplers were obtained, no DVT was appreciated. Clinically rapidly improved on steroids. Seen by Derm during admission, recommended for prednisone taper as above and follow-up in 2 to 3 weeks towards end of taper. No biopsy was recommended at time of presentation. Patient was clinically improved and felt well at time of assessment and discharge. On physical exam breathing is unlabored, lungs clear, heart rate regular, arms and legs are nontender with scattered purpuric papules.
--- NOTE | 2022-07-15 17:07 | Billing Data ---
Date of Service July 15, 2022 Coding Level of Care Code D/C DAY MANAGEMENT >30 MINS
--- NOTE | 2022-07-16 20:27 | Billing Data ---
Date of Service July 16, 2022 Coding Level of Care Code INT OBSERVATION CARE 70M LVL 3
[2022-07-19 07:51] LABS: Babesia microti DNA Not Detected (Not Detected)
[2022-07-20 00:11] LABS: Anti Nuclear Antibody Screen NEGATIVE (NEGATIVE); Mycoplasma pneumoniae Ab, IgG 1.99 (<=0.90); Mycoplasma pneumoniae Ab, IgM 243 U/mL (<770)
[2022-07-22 07:08] LABS: Ehrlichia chaff DNA Bld Negative (Negative)
== END 2022-07-15 15:33 | disposition home or self-care (01) ==
LOC: ED 18:21 → 3W 18:21 → SUATTDRO 22:33 → 3W 23:48